=== PATIENT | male | born 1970 | race Caucasian/White ===

== ENCOUNTER 2024-12-30 09:00 | Outpatient (CLI) | payer OTHER | END 2024-12-30 09:01 | disposition home or self-care (01) | LOC: CSHSLEEP 09:00 | PROVIDERS: ATTEND Family Medicine | DX: G47.33 Obstructive sleep apnea (adult) (pediatric) (principal); R53.83 Other fatigue; E66.9 Obesity, unspecified; Z68.34 Body mass index [BMI] 34.0-34.9, adult; R06.83 Snoring; G47.00 Insomnia, unspecified | CPT/HCPCS: 95810 ==

== ENCOUNTER → 2025-03-28 | Outpatient (CLI) | payer OTHER | LOC: CSHSLEEP 09:18 | PROVIDERS: ATTEND Obstetrics & Gynecology | DX: G47.33 Obstructive sleep apnea (adult) (pediatric) (principal); R53.83 Other fatigue; E66.9 Obesity, unspecified; Z68.34 Body mass index [BMI] 34.0-34.9, adult; R06.83 Snoring; G47.00 Insomnia, unspecified; G47.31 Primary central sleep apnea | CPT/HCPCS: 95811 ==